=== PATIENT | male | born 1960 | race Caucasian/White ===

== ENCOUNTER 2019-02-17 07:06 | Day surgery (SDC) | payer OTHER ==
[~2019-02-17] VITALS: Ht 167.6 cm; Wt 77.1 kg
[2019-02-17 07:42] VITALS: BP 145/88
[2019-02-17 12:22] VITALS: BP 128/81
== END 2019-02-17 10:55 | disposition home or self-care (01) ==
LOC: DS 07:06 → OR 08:00 → GI 08:00 → DS 10:55
DX: Z12.11 Encounter for screening for malignant neoplasm of colon (principal); K57.30 Diverticulosis of large intestine without perforation or abscess without bleeding; E78.00 Pure hypercholesterolemia, unspecified; K21.9 Gastro-esophageal reflux disease without esophagitis; F17.210 Nicotine dependence, cigarettes, uncomplicated; Z86.010 Personal history of colon polyps; Z79.82 Long term (current) use of aspirin; Z79.899 Other long term (current) drug therapy; Z90.49 Acquired absence of other specified parts of digestive tract; Z98.890 Other specified postprocedural states
CPT/HCPCS: 45378; J1200; J1610; J2250; J2310; J3010; J3490